=== PATIENT | female | born 1985 | race Caucasian/White ===

== ENCOUNTER 2016-11-24 16:29 | Emergency (ER) | payer MEDICAID ==
[~2016-11-24] VITALS: Ht 160 cm; Wt 73.0 kg
[~2016-11-24 16:29] MED LIST: CYCL-319 PO; HYDR-906 PO; IBUP-1542 PO; IBUP800T25 PO; TRAM50TA2 PO
[2016-11-24 16:41] VITALS: Ht 160 cm; Wt 73.0 kg
[2016-11-24] MEDS ORDERED: SOD CHLORIDE 0.9% 1,000 ML IV STA (17:59)
[2016-11-24] MEDS ORDERED: KETOROLAC 30 MG INJ IV STA (17:59)
[2016-11-24] MEDS ORDERED: ONDANSETRON 4 MG INJ IV STA (17:59)
[2016-11-24] MEDS ORDERED: MECLIZINE 12.5 MG TAB PO ONE (18:00)
[2016-11-24 18:47] LABS: BASOPHIL # 0.1 10^3/ul (0.0-0.1); EOSINOPHILS # 0.2 10^3/ul (0.0-0.5); EOSINOPHILS % 2.6 % (0.0-7.0); HEMATOCRIT 41.7 % (37.0-47.0); HEMOGLOBIN 13.9 g/dl (12.0-16.0); MEAN CORPUSCULAR HEMOGLOBIN 30.1 pg (29.0-33.0); MEAN CORPUSCULAR HGB CONC 33.3 g/dl (32.0-37.0); MEAN CORPUSCULAR VOLUME 90.3 fl (82.0-101.0); MEAN PLATELET VOLUME 9.9 fl (7.4-10.4); MONOCYTE # 0.6 10^3/ul (0.3-0.9); MONOCYTES % 10.3 % (0.0-11.0); NEUTROPHIL # 2.3 10^3/ul (1.6-7.5); NEUTROPHILS % 36.9 % (39.0-77.0); PLATELET COUNT 344 10^3/UL (140-415); RED BLOOD COUNT 4.62 10^6/ul (4.20-5.40); RED CELL DISTRIBUTION WIDTH 13.4 % (11.5-14.5); WHITE BLOOD COUNT 6.2 10^3/ul (4.8-10.8)
[2016-11-24 19:05] LABS: INR 0.96; PARTIAL THROMBOPLASTIN TIME 29.9 Sec (25.0-35.0); PROTIME 12.8 Sec (12.2-14.2)
[2016-11-24 19:08] LABS: D-DIMER 307.8 ng/ml (<460)
[2016-11-24 19:10] LABS: ALANINE AMINOTRANSFERASE 34 IU/L (13-69); ALBUMIN 4.7 g/dl (3.3-4.9); ALBUMIN/GLOBULIN RATIO 1.34; ALKALINE PHOSPHATASE 88 IU/L (42-121); ANION GAP 17 (8-16); ASPARTATE AMINO TRANSFERASE 23 IU/L (15-46); BILIRUBIN,INDIRECT 0.2 mg/dl (0-1.1); BILIRUBIN,TOTAL 0.2 mg/dl (0.2-1.3); BLOOD UREA NITROGEN 12 mg/dl (7-20); CALCIUM 9.4 mg/dl (8.4-10.2); CARBON DIOXIDE 27 mmol/L (21-31); CHLORIDE 102 mmol/L (97-110); CREATININE 0.76 mg/dl (0.44-1.00); GLUCOSE 92 mg/dl (70-220); POTASSIUM 4.3 mmol/L (3.5-5.1); SODIUM 142 mmol/L (135-144); TOTAL PROTEIN 8.2 g/dl (6.1-8.1)
--- NOTE | 2016-11-24 19:23 | RADRPT ---
PROCEDURE: XR Chest. CLINICAL INDICATION: Abdominal pain. TECHNIQUE: Single frontal view of the chest was obtained COMPARISON: None FINDINGS: The heart and mediastinum are within normal limits. The lungs are clear. Small calcified granulomata throughout the bilateral lungs. There is no pleural effusion or pneumothorax. IMPRESSION: No acute disease. RPTAT: [facility] Physician Desi Date Time Electronically viewed and signed by Physician Desi on 11/24/2016 19:23 RS/
[2016-11-24 19:38] LABS: TROPONIN-I < 0.012 ng/ml (0.00-0.12)
[2016-11-24] MEDS ORDERED: MECL-77 PO (20:07)
[2016-11-24] MEDS ORDERED: NAPR-260 PO (20:07)
[2016-11-24 20:24] VITALS: BP 122/68; PULSE 54; RESP 18
--- NOTE | 2016-11-27 13:36 | ERD ---
DATE OF SERVICE: CHIEF COMPLAINT: Dizziness, chest pain, and short of breath. HISTORY OF PRESENT ILLNESS: This is a 31-year-old female with no past medical history who presents to the emergency department complaining of 3 days of intermittent dizziness. She describes the dizziness as though she has the sensation of the room spinning around her. She denies any tinnitus or changes in vision. She denies a headache. She states her symptoms are better when she lies supine and worse when she sits up. She states this has been occurring roughly 2 times a day over the past 3 days. During vertiginous symptoms, she also indicates that she experiences bilateral chest pressure, palpitations, and shortness of breath. She states that the chest pressure is localized to the bilateral chest wall and does not radiate to the neck, arm, back, or jaw. She does not smoke tobacco and has no family history of coronary artery disease in her 1st-degree relatives. She denies any recent travel or prolonged immobilization. She describes the shortness of breath as only being present when she experiences the vertiginous symptoms. She has had no fevers, no shaking, no chills. She denies any recent hospitalizations and has no history of blood dysarthrias or previous vascular insufficieny. The patient denies any illicit drug use or alcohol use. She states she has never had any similar symptoms before. She does state she has had a history of anxiety but does not take any anxiolytics. She states she is not currently and denies any frequency, urgency, or dysuria. She denies any neck pain. She has had no hemoptysis, hematemesis, or melanotic stools. She does indicate that, when she feels the vertigo come on, she will experience nausea but has not experienced any emesis. She denies any dysarthria, facial muscle paresis, changes in hearing, or gait abnormalities. PAST MEDICAL HISTORY: Anxiety. PAST SURGICAL HISTORY: None. ALLERGIES: NO KNOWN DRUG ALLERGIES. SOCIAL HISTORY: Denies tobacco, ETOH, or illicit drug use. REVIEW OF SYSTEMS: All 12 systems were reviewed and as stated in History of Present Illness. PHYSICAL EXAMINATION: VITAL SIGNS: Blood pressure is 115/62, respiratory rate 18, pulse rate 50, temperature 98.8. Pulse ox is 100 percent on room air. CONSTITUTIONAL: A well-developed, well-nourished female, very polite, sitting up on the stretcher. Did not appear in acute respiratory distress and nontoxic in appearance. HEENT: Normocephalic, atraumatic. Moist mucus membranes. erythema of the oropharynx. Visual acuity was 20/20. Fundoscopic exam showed sharp optic discs bilaterally and venous pulsations were present. No facial muscle paralysis, no facial droop. NECK: Supple. No masses, no tenderness. Trachea midline. No lymphadenopathy. RESPIRATORY: Lungs were clear to auscultation bilaterally. No wheezing, . CHEST: Bilateral reproducible chest wall tenderness with no crepitus, no muscles, no flail chest. CARDIOVASCULAR: Regular rate, regular rhythm. S1, S2 normal. No murmurs are appreciated. Pedal pulses were palpable, 2+ bilaterally. Capillary refill less than 2 seconds. GASTROINTESTINAL: Abdomen was soft, nontender. No . Bowel sounds are positive. No abdominal masses or bruits. MUSCULOSKELETAL: The patient has full range of motion in both the upper and lower extremities bilaterally. Muscle tone was normal. SKIN: Warm, dry with no cyanosis, , or edema. No . NEUROLOGICAL: The patient is alert, awake, oriented x3. There were no focal neurological deficits. No facial droop. No ataxia. DIAGNOSTICS: Test interpretations: 1. Pulse oximeter normal. There was no . 2. EKG tracing reviewed by myself showed sinus bradycardia. Ventricular rate of 50 beats/minute. ND interval normal. QS duration normal. There was no ST-segment elevation or depression. Time was at 16:47. 3. One view chest radiograph reviewed by myself showed no cardiomegaly, no infiltrates, no pneumothorax. ANCILLARY LABORATORY WORK: The patient has no leukocytosis. White blood cell count was 6.2. The patient was not anemic. The patient was not coagulopathic. D-dimer was within normal limits and not elevated. There were no electrolyte abnormalities. No acute kidney injury. No liver or gallbladder damage. Urine test was negative. MEDICAL DECISION MAKING : This patient was seen and evaluated by myself and presented to the emergency department with chest pain, shortness of breath, and vertigo. My differential diagnoses included, but were not limited to, various central and peripheral causes of vertigo, such as a cerebrovascular accident, vertebrobasilar insufficiency, labyrinthitis, Meniere disease, paroxysmal positional vertigo, myocardial infarction, myocarditis, endocarditis, pericarditis, multiple sclerosis, subclavian steal syndrome, electrolyte abnormalities. The patient is not currently taking any ototoxic drugs such as amino glycosides, antimalarials, erythromycin, or furosemide that could be the etiology of her symptoms. The patient did not have any physical exam findings to suggest Meniere disease as she did have episodic vertigo; however, there is no hearing loss or tinnitus. The patient did not have any signs of an acoustic neuroma. There was no VIII cranial nerve palsy or progressive unilateral hearing deficits or tinnitus. The patient did not have any physical exam findings to suggest otitis media or serous otitis with infusion, and there has been no recent foreign body instrumentation into the ear canal. The patient was a low pretest probability according to the Wells criteria for pulmonary embolism as she also complained of shortness of breath. Therefore, I obtained a D-dimer; this was within normal limits, and my clinical suspicion was low for a pulmonary embolism. Therefore, I did not feel it was not necessary to undergo a CT angiogram. The patient also complained of chest pressure. She has no family history of cardiac risk factors of coronary artery disease. The patient's EKG showed no evidence of ischemia or an infectious process such as endocarditis, myocarditis, or pericarditis. Her pain was reproducible, and I did feel this was more likely peripheral musculoskeletal chest wall pain. She received IV Toradol and stated she has significant improvement of her chest discomfort. Regarding the patient's vertigo, I did indicate that this could be benign paroxysmal positional vertigo as it was dependent on her head position. She has had intermittent fatigue, and I indicated the probable cause is loose particles in the semicircle canals. She received Antivert and IV fluids as well as Zofran. Upon reevaluation the patient stated her vertigo had significantly improved. She was able to ambulate with no nausea or vomiting. I did indicate to the patient that I felt she would be safe to be discharged home as this appeared to be of peripheral etiology and stable; however, I did indicate that she would benefit from outpatient followup with her primary care physician, neurologist, or medical lab assistant. She was sent home with a prescription of Antivert and Naprosyn and instructed that she can return to the emergency department at any time if there is any worsening of her symptoms. OVERALL CLINICAL IMPRESSION: 1. Peripheral vertigo. 2. Costochondritis. 3. Shortness of breath of unclear etiology. Dictated By: Nunu Simms MD /cesario/karlene /Document#: [id number]
== END 2016-11-24 20:29 | disposition home or self-care (01) ==
LOC: FTE 16:29
DX: H81.393 Other peripheral vertigo, bilateral (principal); M94.0 Chondrocostal junction syndrome [Tietze]; R06.02 Shortness of breath
CPT/HCPCS: 71010; 80053; 84484; 85025; 85378; 85610; 85730; 96374; 96375; J1885; J2405; J7030; Z7502; Z7610

== ENCOUNTER 2017-04-04 18:12 | Emergency (ER) | payer MEDICAID ==
[~2017-04-04] VITALS: Ht 157.5 cm; Wt 74.8 kg
[~2017-04-04 18:12] MED LIST changes: +MECL-77 PO; +NAPR-260 PO
[2017-04-04 18:14] VITALS: Ht 157.5 cm; Wt 74.8 kg
[2017-04-04] MEDS ORDERED: KETOROLAC 30 MG INJ IM STA (19:47)
[2017-04-04] MEDS ORDERED: TRAM-40 PO (19:50)
[2017-04-04] MEDS ORDERED: CYCL-319 PO (19:50)
--- NOTE | 2017-04-04 19:52 | ERD ---
ER Documentation Chief Complaint Chief Complaint LOWER BACK PAIN X 1 WEEK HPI This 31-year-old female presents with low back pain last week. Is on the right lower back. She denies any flank pain. She denies any urinary complaints, fevers, bowel bladder incontinence, weakness. She denies any history of trauma. ROS All systems reviewed and are negative except as per history of present illness. Medications Home Meds Active Scripts Cyclobenzaprine Hcl* (Cyclobenzaprine Hcl*) 10 Mg Tablet, 10 MG PO Q8 Y for PAIN , #20 TAB Prov:SELIN VELAZCO MD 04/04/17 Tramadol Hcl* (Ultram*) 50 Mg Tablet, 50 MG PO Q6H Y for PAIN, #20 TAB Prov:SELIN VELAZCO MD 04/04/17 Meclizine Hcl* (Meclizine Hcl*) 25 Mg Tablet, 25 MG PO TID, #20 TAB Prov:CHINEDU NOGUERA 11/24/16 Naproxen* (Naprosyn*) 500 Mg Tablet, 500 MG PO BID, #20 TAB Prov:CHINEDU NOGUERA 11/24/16 Cyclobenzaprine Hcl* (Cyclobenzaprine Hcl*) 10 Mg Tablet, 10 MG PO TID, #15 TAB Prov:JUSTO QUEZADA NP 01/06/16 Ibuprofen* (Motrin*) 800 Mg Tab, 800 MG PO Q6H Y for PAIN AND OR ELEVATED TEMP, #30 TAB Prov:JUSTO QUEZADA NP 01/06/16 Hydrocodone/Acetaminophen (Mulberry 5-325 Tablet) 1 Each Tablet, 1 TAB PO Q6H Y for PAIN, #10 TAB Prov:RIKKI GARCIA PA-C 01/05/16 Ibuprofen* (Motrin*) 600 Mg Tab, 600 MG PO Q6, #20 TAB Prov:SELIN VELAZCO MD 12/19/14 Tramadol HCl (Tramadol HCl) 50 Mg Tab, 50 MG PO Q4 Y for PAIN, #20 TAB Prov:SELIN VELAZCO MD 12/19/14 Allergies Allergies: Coded Allergies: No Known Allergy (Unverified , 01/05/16) PMhx/Soc History of Surgery: Yes (appendectomy 2013, c section ) Anesthesia Reaction: No Hx Neurological Disorder: No Hx Respiratory Disorders: No Hx Cardiac Disorders: No Hx Psychiatric Problems: No Hx Miscellaneous Medical Probl: No Hx Alcohol Use: No Hx Substance Use: No Hx Tobacco Use: No Physical Exam Vitals Vital Signs Date Time Temp Pulse Resp B/P Pulse Ox O2 Delivery O2 Flow Rate FiO2 04/04/17 18:14 97.2 68 16 118/56 99 Physical Exam Const: [] Alert, [id number]. Head: Atraumatic Eyes: Normal Conjunctiva ENT: Normal External Ears, Nose and Mouth. Neck: Full range of motion..~ No meningismus. Resp: Clear to auscultation bilaterally Cardio: Regular rate and rhythm, no murmurs Abd: Soft, non tender, non distended. Normal bowel sounds Skin: No petechiae or rashes Back: No midline or flank tenderness or tenderness in the right L4-5 paraspinous area with spasm. Ext: No cyanosis, or edema Neur: Awake and alert. Ambulatory without deficits or weakness. Psych: Normal Mood and Affect Results 24 hrs Current Medications Medications (Trade) Dose Ordered Sig/Karen Route PRN Reason Start Time Stop Time Status Last Admin Dose Admin Ketorolac Tromethamine (Toradol) 30 mg ONCE STAT IM 04/04/17 19:47 04/04/17 19:48 DC Acetaminophen/ Hydrocodone Bitart (Mulberry (5/325)) 1 tab ONCE ONCE PO 04/04/17 20:00 04/04/17 20:01 Procedures/MDM Patient presents with nontraumatic low back pain with spasm and reproducible in the right L4-L5 area. She has no flank symptoms to suggest UTI or pyelonephritis. There is no evidence of neurologic deficit, epidural abscess, cauda equina syndrome, no history of stress fracture dislocation. Likely has musculoskeletal low back pain and was given Toradol 30 mg IM here as well as Mulberry 5 mg by mouth. She will be treated with tramadol, Flexeril, instructions for back exercises return precautions and primary care follow-up. The patient was stable with no new complaints during the ER course. Clinically, there is no current evidence to suggest meningitis, sepsis, acute abdomen, pneumonia, acute coronary syndrome, pulmonary embolism, or any other emergent condition appearing to require further evaluation or hospitalization. The patient should certainly return for any new or worsening symptoms per the aftercare instructions. They should otherwise follow-up with her primary care doctor for reevaluation this week. Departure Diagnosis: Primary Impression: Back pain Back pain location: low back pain Chronicity: acute Back pain laterality: right Sciatica presence: without sciatica Qualified Code: M54.5 - Acute right-sided low back pain without sciatica Condition: Stable Patient Instructions: Back Exercises, Lumbar, Back Pain (Acute Or Chronic) Additional Instructions: Cheque otro vez con knight doctor primario en el proximo mckeon or regresa para mas o nueva simptomas. SELIN VELAZCO MD Apr 04, 2017 19:52
[2017-04-04] MEDS ORDERED: HYDROCODONE/APAP (5/325) TAB PO ONE (20:00)
== END 2017-04-04 20:22 | disposition home or self-care (01) ==
LOC: FTE 18:12
DX: M54.5 Low back pain (principal)
CPT/HCPCS: 96372; J1885; Z7502; Z7610

== ENCOUNTER 2017-06-01 09:24 | Emergency (ER) | END 2017-06-01 17:11 | disposition home or self-care (01) ==